=== PATIENT | female | born 1945 ===

== ENCOUNTER → 2022-03-21 | Outpatient (REF) | payer MEDICARE, BC ==
[2022-03-21 19:13] LABS: MALB URINE SIEMENS 5.1 MG/L; MAU/CREAT RATIO 4.2 MCG/MG (0.0-30.0)
== END ==
LOC: M LAB REF 16:55
PROVIDERS: ATTEND Nurse Practitioner Family
DX: E11.65 Type 2 diabetes mellitus with hyperglycemia (principal)